=== PATIENT | female | born 1965 | race Caucasian/White ===

== ENCOUNTER 2017-11-15 12:43 | Day surgery (SDC) | payer BC ==
[~2017-11-15] VITALS: Ht 157.5 cm; Wt 97.5 kg
[~2017-11-15 12:43] MED LIST: ASPIRIN81 MG PO; BUMEX1 M1 PO; CITALOPRAM40 MG PO; CLARITIN-D1 TA2 PO; CYCLOBENZAPR10 MG PO; LISINOPRIL10 M1 PO; PERCOCET 5/325M1 TAB PO; PRAVACHOL20 MG PO; TRAZODONE100 MG PO
[2017-11-15] MEDS ORDERED: LUTEIN20 MG PO (13:01)
[2017-11-15] MEDS ORDERED: [UNRECOGNIZED DRUG - OTHER] (13:01)
[2017-11-15] MEDS ORDERED: B121000 MCG (13:01)
[2017-11-15] MEDS ORDERED: CALTRAT1 PO (13:01)
[2017-11-15] MEDS ORDERED: MAGNESIUM OXID400 M2 (13:02)
[2017-11-15] MEDS ORDERED: STOOL SOFTENER100 MG PO (13:02)
[2017-11-15] MEDS ORDERED: OMEPRAZOLE20 MG PO (13:02)
[2017-11-15 15:21] VITALS: BP 105/62
== END 2017-11-15 15:34 | disposition home or self-care (01) | DRG 391 ==
LOC: ENDO 12:43 → ORM 17:45 → ENDO 18:20
PROVIDERS: ATTEND Internal Medicine Gastroenterology
PROC: 0D758ZZ Dilation of Esophagus, Via Natural or Artificial Opening Endoscopic (ICD-10-PCS; principal; 2017-11-15)
PROC: 0DB48ZX Excision of Esophagogastric Junction, Via Natural or Artificial Opening Endoscopic, Diagnostic (ICD-10-PCS; 2017-11-15)
PROC: 0DJD8ZZ Inspection of Lower Intestinal Tract, Via Natural or Artificial Opening Endoscopic (ICD-10-PCS; 2017-11-15)
DX: R13.10 Dysphagia, unspecified (principal); K57.31 Diverticulosis of large intestine without perforation or abscess with bleeding; K21.9 Gastro-esophageal reflux disease without esophagitis; K64.8 Other hemorrhoids; K64.4 Residual hemorrhoidal skin tags; R19.7 Diarrhea, unspecified; K59.00 Constipation, unspecified; R68.81 Early satiety; R14.0 Abdominal distension (gaseous); I10 Essential (primary) hypertension; F32.9 Major depressive disorder, single episode, unspecified; E78.00 Pure hypercholesterolemia, unspecified; K29.50 Unspecified chronic gastritis without bleeding; Z96.89 Presence of other specified functional implants; Z87.11 Personal history of peptic ulcer disease; Z86.010 Personal history of colon polyps; Z80.0 Family history of malignant neoplasm of digestive organs

== ENCOUNTER 2021-08-08 17:09 | Observation (INO) | payer MEDICARE ==
[~2021-08-08] VITALS: Ht 157.5 cm; Wt 88.0 kg
[~2021-08-08 17:09] MED LIST changes: +B121000 MCG; +CALTRAT1 PO; +LUTEIN20 MG PO; +MAGNESIUM OXID400 M2; +OMEPRAZOLE20 MG PO; -PRAVACHOL20 MG PO; +PRAVASTATIN20 MG PO; +STOOL SOFTENER100 MG PO; +[UNRECOGNIZED DRUG - OTHER]
[2021-08-08 18:12] LABS: HEMATOCRIT 39.5 % (37.0-47.0); HEMOGLOBIN 12.7 g/dl (12.0-16.0); IMMATURE GRANULOCYTES 0.3 % (0.0-5.0); MEAN CORPUSCULAR HGB CONC 32.2 g/dL CAL (32.0-36.0); NEUT# 4.21 thou/uL (2.00-7.15); RED BLOOD COUNT 4.54 mill/uL (4.20-5.60); RED CELL DISTRI WIDTH 13.2 % (11.5-15.5); URINE BILIRUBIN - DIPSTICK NEGATIVE (NEGATIVE); URINE BLOOD DIPSTICK NEGATIVE (NEGATIVE); URINE COLOR YELLOW; URINE GLUCOSE - DIPSTICK NEGATIVE (NEGATIVE); URINE KETONE NEGATIVE (NEGATIVE); URINE LEUK ESTERASE NEGATIVE (NEGATIVE); URINE PROTEIN - DIPSTICK NEGATIVE (NEG-TRACE); URINE SPECIFIC GRAVITY >=1.030; URINE UROBILINOGEN - DIPSTICK 0.2 E.U./dL (0.2)
[2021-08-08 18:26] LABS: URINE NITRITE - DIPSTICK NEGATIVE (Negative)
[2021-08-08 18:48] LABS: INTERNATIONAL NORMALIZED RATIO 0.9 RATIO (0.7-1.3); PROTHROMBIN TIME 9.8 SECONDS (9.0-12.5)
[2021-08-08 18:52] LABS: ALKALINE PHOSPHATASE 120 u/l (38-126); ANION GAP 9 (6-22 (CALC)); BILIRUBIN, TOTAL 0.5 mg/dL (0.0-1.4); BUN 14 mg/dL (7-17); BUN/CREATININE RATIO 15 (12-20 (CALC)); CARBON DIOXIDE 29 mmol/l (22-30); CHLORIDE 105 mmol/l (95-108); GFR 57 ML/MIN (>=60 (CALC)); GFR FOR AFR.AMER. > 60 ML/MIN (>=60 (CALC)); POTASSIUM 3.9 mmol/l (3.5-5.1); SGOT/AST 28 u/l (14-36); SODIUM 138 mmol/l (137-146); TOTAL PROTEIN 6.9 g/dL (6.3-8.2)
[2021-08-08] MEDS ORDERED: BUPROPN HCL300 MG PO (20:27)
[2021-08-09] VITALS (12 sets, daily range): BP systolic 101–127; BP diastolic 49–80
[2021-08-09] MEDS ORDERED: LORTAB 1010 MG PO (07:25)
[2021-08-09] MEDS ORDERED: RESTORIL15 MG PO (07:25)
[2021-08-09] MEDS ORDERED: LOPRESSOR25 MG PO (07:25)
[2021-08-10] VITALS (13 sets, daily range): BP systolic 90–138; BP diastolic 52–78
[2021-08-10 05:54] LABS: CHOLESTEROL HDL RATIO 3.1 (<4.4 (CALC))
[2021-08-10 07:32] LABS: HEMATOCRIT 38.5 % (37.0-47.0); HEMOGLOBIN 12.3 g/dl (12.0-16.0); IMMATURE GRANULOCYTES 0.2 % (0.0-5.0); MEAN CELL VOLUME 88.1 fL CALC (80.0-100.0); MEAN CORPUSCULAR HGB 28.1 pG CALC (26.0-32.0); MEAN CORPUSCULAR HGB CONC 31.9 g/dL CAL (32.0-36.0); NEUT# 2.77 thou/uL (2.00-7.15); RED BLOOD COUNT 4.37 mill/uL (4.20-5.60); RED CELL DISTRI WIDTH 13.3 % (11.5-15.5)
[2021-08-10 07:35] LABS: ALBUMIN 3.5 g/dL (3.2-5.0); ALKALINE PHOSPHATASE 82 u/l (38-126); ANION GAP 9 (6-22 (CALC)); BILIRUBIN, TOTAL 0.5 mg/dL (0.0-1.4); BUN 14 mg/dL (7-17); BUN/CREATININE RATIO 14 (12-20 (CALC)); CARBON DIOXIDE 30 mmol/l (22-30); CHLORIDE 105 mmol/l (95-108); GFR 57 ML/MIN (>=60 (CALC)); GFR FOR AFR.AMER. > 60 ML/MIN (>=60 (CALC)); POTASSIUM 4.4 mmol/l (3.5-5.1); SGOT/AST 25 u/l (14-36); SODIUM 139 mmol/l (137-146); TOTAL PROTEIN 5.9 g/dL (6.3-8.2)
[2021-08-11] VITALS (9 sets, daily range): BP systolic 97–130; BP diastolic 41–82
[2021-08-11] MEDS ORDERED: LORTAB 1010 MG PO (10:08)
== END 2021-08-11 10:55 | disposition home or self-care (01) ==
LOC: ED 17:09 → ED-I 19:43 → ED 22:22 → ICU 22:23
PROVIDERS: Family Medicine; Internal Medicine; ADMIT Internal Medicine; ATTEND Internal Medicine
PROC: 009U3ZX Drainage of Spinal Canal, Percutaneous Approach, Diagnostic (ICD-10-PCS; principal; 2021-08-10)
DX: G96.9 Disorder of central nervous system, unspecified (principal); S30.0XXA Contusion of lower back and pelvis, initial encounter; I10 Essential (primary) hypertension; E78.5 Hyperlipidemia, unspecified; M19.90 Unspecified osteoarthritis, unspecified site; F41.9 Anxiety disorder, unspecified; F32.A Depression, unspecified; E66.9 Obesity, unspecified; W10.0XXA Fall (on)(from) escalator, initial encounter; Y92.520 Airport as the place of occurrence of the external cause; Z68.35 Body mass index [BMI] 35.0-35.9, adult; Z86.16 Personal history of COVID-19; Z20.822 Contact with and (suspected) exposure to COVID-19; Z79.82 Long term (current) use of aspirin
CPT/HCPCS: J1650; Q9967

== ENCOUNTER 2023-09-19 08:23 | Observation (INO) | payer MEDICARE ==
[~2023-09-19] VITALS: Ht 157.5 cm; Wt 72.4 kg
[2023-09-19] VITALS (25 sets, daily range): BP systolic 106–145; BP diastolic 61–100
[~2023-09-19 08:23] MED LIST changes: +BUPROPN HCL300 MG PO; +LOPRESSOR25 MG PO; +LORTAB 1010 MG PO; +RESTORIL15 MG PO
[2023-09-19 09:24] LABS: ALBUMIN 4.1 g/dL (3.2-5.0); ALKALINE PHOSPHATASE 80 u/l (38-126); ANION GAP 9 (6-22 (CALC)); BUN 19 mg/dL (7-17); BUN/CREATININE RATIO 24 (12-20 (CALC)); CARBON DIOXIDE 29 mmol/l (22-30); CHLORIDE 104 mmol/l (95-108); CREATININE 0.8 mg/dL (0.5-1.0); GFR FOR AFR.AMER. > 60 ML/MIN (>=60 (CALC)); GFR OTHER RACES > 60 ML/MIN (>=60 (CALC)); SGOT/AST 26 u/l (14-36); SODIUM 138 mmol/l (137-146); TOTAL PROTEIN 6.6 g/dL (6.3-8.2)
[2023-09-19 09:29] LABS: BILIRUBIN, TOTAL 0.9 mg/dL (0.02-1.3)
[2023-09-19 09:38] LABS: BASO% 0.2 % (0-3); EOS% 1.4 % (0-8); HEMATOCRIT 41.3 % (37.0-47.0); HEMOGLOBIN 13.2 g/dl (12.0-16.0); IMMATURE GRANULOCYTES 0.3 % (0.0-5.0); LYMPH% 7.5 % (15-41); MEAN CELL VOLUME 86.8 fL CALC (80.0-100.0); MEAN CORPUSCULAR HGB 27.7 pG CALC (26.0-32.0); MONO% 7.4 % (2-13); NEUT# 8.47 thou/uL (2.00-7.15); NEUT% 83.2 % (42-76); RED BLOOD COUNT 4.76 mill/uL (4.20-5.60); RED CELL DISTRI WIDTH 12.8 % (11.5-15.5)
--- NOTE | 2023-09-19 09:53 | NUR ---
PT REPORT RECIEVEDD FROM MORNING SHIFT NURSE. CARE IS ACCEPTED. PT RESTING COMFORTABLY IN BED. VSS. PT DENIES ANY NEEDS AT THIS TIME.
[2023-09-19] MEDS ORDERED: ASPIRIN 81 MG/TAB PO ONE (09:55)
[2023-09-19 11:52] LABS: URINE BILIRUBIN - DIPSTICK Negative (NEGATIVE); URINE BLOOD DIPSTICK Negative (NEGATIVE); URINE GLUCOSE - DIPSTICK Negative (NEGATIVE); URINE KETONE Negative (NEGATIVE); URINE LEUK ESTERASE Negative (NEGATIVE); URINE NITRITE - DIPSTICK Negative (Negative); URINE PH 7.5 (4.5-8.0); URINE PROTEIN - DIPSTICK Negative (NEG-TRACE)
[2023-09-19 11:55] LABS: URINE COLOR Yellow
--- NOTE | 2023-09-19 12:48 | NUR ---
ASSISTED PT TO RESTROOM WITH STEADY GAIT.
--- NOTE | 2023-09-19 13:00 | NUR ---
PT BACK TO ROOM AND ON THE MONITOR, VOICE NO CONERNS.
[2023-09-19] MEDS ORDERED: PRAVASTATIN SOD20 MG PO (13:41)
[2023-09-19] MEDS ORDERED: ATIVAN0.5 MG PO (13:42)
--- NOTE | 2023-09-19 14:05 | NUR ---
PT RESTING IN BED. VSS. PT U[DATED ON CONTINUED WIAT TIME FOR BED ASSIGNMENT. PT STATES UNDERSTANING AND DENIES ANYNEEDS AT THIS TIME.
--- NOTE | 2023-09-19 14:23 | NUR ---
RECIEVED REPORT FROM ER NURSE. PT TO BE BROUGHT UP WHEN ORDERS ARE RECIEVED
[2023-09-19] MEDS ORDERED: SODIUM CHLORIDE 0.9% 1,000 ML IV PRN (14:25)
[2023-09-19] MEDS ORDERED: MAGNESIUM HYDROXIDE 30 ML UDC PO PRN (14:25)
[2023-09-19] MEDS ORDERED: ACETAMINOPHEN 325 MG/TAB PO PRN (14:25)
[2023-09-19] MEDS ORDERED: NITROGLYCERIN 0.4 MG/TAB SL PRN (14:30)
[2023-09-19] MEDS ORDERED: LORazepam 0.5 MG/TAB PO PRN (14:30)
[2023-09-19] MEDS ORDERED: MORPHINE SULFATE 4 MG/ML VIAL IV PRN (14:30)
--- NOTE | 2023-09-19 14:45 | NUR ---
REPORT CALED AND GIVEN TO MARGARET ON MS. PT BEING TAKEN UP VIA WHEELCHAIR.
--- NOTE | 2023-09-19 15:07 | NUR ---
PT ARRIVED TO [facility] ROOM 263. PT A/OX3. RESPIRATIONS EVEN AND UNLABORED ON ROOM AIR. LUNG SOUNDS CLEAR. PT REPORTS PRODUCTIVE COUGH WITH FOAMY YELLOW SPUTUM. HEART RHYTHM NORMAL WITH TELE #[address] BOWEL SOUNDS ACTIVE, LBM 09/18/23. #20G LFA PATENT. IVF STARTED PER ORDER. SKIN INTACT. ART HOSE APPLIED. PT C/O OF HEADACHE AND 4/10 CHEST PAIN. TYLENOL ADMINISTERED FOR HEADACHE. LATEX ALLERGY NOTED. PT ORIENTED TO ROOM AND CALL LIGHT SYSTEM. SNAACK PROVIDED DUE TO NOT EATING LUNCH. PT DENIES OF ANY ADDITIONAL NEEDS. ALL SAFETY PRECAUTIONS ARE IN PLACE WITH CALL LIGHT IN REACH.
--- NOTE | 2023-09-19 19:05 | NUR ---
PT REQUEST FOR DAUGHTER KIRSTIE SCHILLING TO BE ADDED TO CONTACTS. #[phone]. REGISTRATION INFORMED.
--- NOTE | 2023-09-19 20:00 | NUR ---
RECEIVED REPORT FROM NURSE YOU, PATIENT RESTING SITTING IN BED, PATIENT'S FRIEND IN ROOM, PATIENT STATED WAS GOING TO THE BATHOOM, SUDDENLY FELT DIZZY AND WAS HAVING CELINE TIME, COUGHING OUT PHLEGM, ORTHOSTATIC V/S TAKEM SUPINE 131/75 69, SITTING 123/82 69, STANDING 134/88 86, PATIENT ALSO STATED PAIN ON CHEST WHEN COUGHING AND SOMETHING SQUUEZING ON LEFT ARM, STEWARD/STEWARDESS WINE MADE AWARE OBTAINNED EKG.
--- NOTE | 2023-09-19 20:48 | NUR ---
CALLED RESPIRATORY STAT EKG FRO CHEST HEAVINESS RADIATE ARM SQUEEZING PAIN
[2023-09-19] MEDS ORDERED: ESCITALOPRAM 10 MG/TAB PO SCH (21:00)
[2023-09-19] MEDS ORDERED: ATORVASTATIN CALCIUM 40 MG/TAB PO SCH (21:00)
[2023-09-19] MEDS ORDERED: ENOXAPARIN SODIUM 40 MG/0.4 ML SYR SC SCH (21:00)
--- NOTE | 2023-09-19 21:00 | NUR ---
NOTIFIED OF PATIENT REQUEST SLEEP AID THAT SHE TAKES AT HOME, ORDER FAX TO [facility].
[2023-09-19] MEDS ORDERED: GUAIFENESIN 600 MG/TAB PO SCH (21:18)
[2023-09-19] MEDS ORDERED: IPRATROPIUM-Albuterol 0.5MG-2.5MG/3 ML NEB PRN (21:20)
[2023-09-19] MEDS ORDERED: TEMAZEPAM 15 MG/CAP PO SCH (21:30)
--- NOTE | 2023-09-20 00:39 | NUR ---
DUE TROPONIN DRAWN, PATIENT NOT IN DISTRESS, CALL LIGHT IN REACH.
[2023-09-20 03:38] VITALS: BP 113/65
--- NOTE | 2023-09-20 04:49 | NUR ---
PATIENT NOT IN DISTRESS, BREATHING EVEN NLABORED CALL LIGHT IN REACH.
[2023-09-20 07:04] LABS: BASO% 0.3 % (0-3); EOS% 3.5 % (0-8); HEMATOCRIT 37.3 % (37.0-47.0); HEMOGLOBIN 11.8 g/dl (12.0-16.0); IMMATURE GRANULOCYTES 0.9 % (0.0-5.0); LYMPH% 21.6 % (15-41); MEAN CORPUSCULAR HGB 27.8 pG CALC (26.0-32.0); MEAN CORPUSCULAR HGB CONC 31.6 g/dL CAL (32.0-36.0); MONO% 10.3 % (2-13); NEUT# 4.2 thou/uL (2.00-7.15); NEUT% 63.4 % (42-76); RED BLOOD COUNT 4.24 mill/uL (4.20-5.60)
[2023-09-20 07:13] VITALS: BP 128/69
[2023-09-20 07:25] LABS: ALBUMIN 3.3 g/dL (3.2-5.0); ALKALINE PHOSPHATASE 67 u/l (38-126); ANION GAP 7 (6-22 (CALC)); BILIRUBIN, TOTAL 0.6 mg/dL (0.02-1.3); BUN 11 mg/dL (7-17); BUN/CREATININE RATIO 13 (12-20 (CALC)); CALCULATED LDLCHOLESTEROL 52 mg/dL (62-129 (CALC)); CARBON DIOXIDE 29 mmol/l (22-30); CHLORIDE 108 mmol/l (95-108); CHOLESTEROL HDL RATIO 1.9 (<4.4 (CALC)); CREATININE 0.9 mg/dL (0.5-1.0); GFR FOR AFR.AMER. > 60 ML/MIN (>=60 (CALC)); GFR OTHER RACES > 60 ML/MIN (>=60 (CALC)); HDL CHOLESTEROL 64 mg/dL (39.0-59.0); MAGNESIUM 2.1 mg/dL (1.6-2.3); POTASSIUM 4.3 mmol/l (3.5-5.1); SGOT/AST 22 u/l (14-36); SODIUM 140 mmol/l (137-146); TOTAL CHOLESTEROL 125 mg/dl (0-199); TOTAL PROTEIN 5.3 g/dL (6.3-8.2); TOTAL TRIGLYCERIDES 42 mg/dl (0-149); VLDL CHOLESTROL 8 mg/dl (2-49 (CALC))
--- NOTE | 2023-09-20 08:00 | NUR ---
Bedsideshift report completed. No needs voicedat current time. Call light in reach.
[2023-09-20] MEDS ORDERED: ASPIRIN 81 MG/TAB PO SCH (09:00)
[2023-09-20] MEDS ORDERED: buPROPion HCL 150 MG TAB SR PO SCH (09:00)
[2023-09-20] MEDS ORDERED: MUCINEX600 MG PO (10:02)
[2023-09-20 10:24] VITALS: BP 114/69
[2023-09-20] MEDS ORDERED: FLUTICASONE PROPIONATE (Nasal) 50MCG/SPRAY INH SCH (11:00)
--- NOTE | 2023-09-20 14:43 | NUR ---
IV site discontinued, cath intact. No edema , no redness, voices no discomfort. Discharge instructions given. Patient verbalizes understanding of same. Discharged in stable condition via Wheelchair to Home with family. All belongings sent with pt.
--- NOTE | 2023-09-23 10:04 | NUR ---
Discharge follow up call completed 09/23/23. Pt states she and her family are all suffering with a cough and sinus problem. Pt has prescribed medication but is not using the nasal spray because she deverloped nose bleeds when using. Pt plans to contact PCP today for follow up appointment. Encouraged patient to be sure and do this today if possible and suggested her family members might need to see their PCP also. No specific needs expressed at this time.
== END 2023-09-20 15:29 | disposition home or self-care (01) ==
LOC: ED 08:23 → ED-I 12:14 → ED 12:26 → MS2 12:27
PROVIDERS: Family Medicine; ADMIT Student in an Organized Health Care Education/Training Program; ATTEND Student in an Organized Health Care Education/Training Program
DX: R07.89 Other chest pain (principal); R05.9 Cough, unspecified; J02.9 Acute pharyngitis, unspecified; I44.7 Left bundle-branch block, unspecified; I10 Essential (primary) hypertension; E78.5 Hyperlipidemia, unspecified; F41.9 Anxiety disorder, unspecified; F32.A Depression, unspecified; F43.10 Post-traumatic stress disorder, unspecified; M54.9 Dorsalgia, unspecified; G89.29 Other chronic pain; Z20.822 Contact with and (suspected) exposure to COVID-19
CPT/HCPCS: G0378; J1650

== ENCOUNTER 2024-03-01 12:37 | Emergency (ER) | payer MEDICARE ==
[~2024-03-01 12:37] MED LIST changes: +ATIVAN0.5 MG PO; +MUCINEX600 MG PO; +PRAVASTATIN SOD20 MG PO
== END 2024-03-01 13:35 | disposition left against medical advice (07) ==
LOC: ED 12:37 → LWOBS 13:35
DX: Z53.21 Procedure and treatment not carried out due to patient leaving prior to being seen by health care provider (principal)

== ENCOUNTER 2024-03-03 10:28 | Emergency (ER) | payer MEDICARE ==
[~2024-03-03] VITALS: Ht 157.5 cm; Wt 88.5 kg
[2024-03-03] VITALS (9 sets, daily range): BP systolic 136–158; BP diastolic 84–112
[2024-03-03] MEDS ORDERED: METHOCARBAMOL 500 MG/TAB PO ONE (11:25)
[2024-03-03] MEDS ORDERED: KETOROLAC TROMETHAMINE 30 MG/ML SDV IM ONE (11:25)
[2024-03-03] MEDS ORDERED: NAPROXEN500 MG PO (12:52)
[2024-03-03] MEDS ORDERED: FLEXERIL5 M1 PO (12:52)
== END 2024-03-03 13:03 | disposition home or self-care (01) ==
LOC: ED 10:28
DX: M47.816 Spondylosis without myelopathy or radiculopathy, lumbar region (principal); I10 Essential (primary) hypertension; F41.9 Anxiety disorder, unspecified; I45.4 Nonspecific intraventricular block